=== PATIENT | female | born 1935 | race Caucasian/White ===

== ENCOUNTER 2017-07-23 06:44 | Emergency (ER) | payer OTHER ==
[~2017-07-23] VITALS: Ht 149.9 cm; Wt 40.8 kg
--- NOTE | ~2017-07-23 | EKG ---
[place] [address] [facility] [place] [address] ELECTROCARDIOGRAM REPORT Name: SHILPA VANG [id number] Admission: 07/23/17 Attend Phys: Discharge: 07/23/17 Date of : 31 Report #: [id number] THIS REPORT FOR: //name// [facility] ED Test Date: 2017-07-23 Test Time: 07:40:59 Pat Name: SHILPA VANG Department: Room: Gender: Television Specialist: JLAMBERT : 1935 Requested By: Jaylon Morgan Order Number: [id number] MD: Garrick Naidu Measurements Intervals [place] Rate: 72 P: 58 CA: 143 QRS: 23 QRSD: 92 T: 55 QT: 394 QTc: 432 Interpretive Statements Sinus rhythm No significant abnormality No previous ECG available for comparison Electronically Signed On 07-24-2017 14:11:57 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
[2017-07-23 07:15] LABS: HEMATOCRIT 41.7 % (37.0-47.0); HEMOGLOBIN 14.3 gm/dL (12.0-15.0); MCH 30.4 pg (26.0-34.0); MCHC 34.2 g/dL (28.0-37.0); MCV 88.8 fL (80.0-100.0); RBC 4.7 mil/uL (4.20-5.00); RDW 13.8 % (10.5-14.5); WBC 6.9 thou/uL (4.0-11.0)
[2017-07-23 07:18] LABS: URINE BILIRUBIN NEGATIVE (Negative); URINE BLOOD NEGATIVE (Negative); URINE CLARITY CLEAR; URINE COLOR YELLOW; URINE GLUCOSE-RANDOM* NEGATIVE (Negative); URINE KETONES NEGATIVE (Negative); URINE LEUKOCYTES-REFLEX NEGATIVE (Negative); URINE NITRITE-REFLEX NEGATIVE (Negative); URINE PROTEIN (DIPSTICK) NEGATIVE (Negative); URINE UROBILINOGEN 0.2 E.U./dl (0.2-1.0)
[2017-07-23 07:23] LABS: ANION GAP 5 mmol/L (7-16); BUN 13 mg/dL (7-18); CALCIUM 9.3 mg/dL (8.5-10.1); CHLORIDE 108 mmol/L (98-107); CO2 29 mmol/L (21-32); CREATININE 0.6 mg/dL (0.6-1.0); GLUCOSE 95 mg/dL (74-106); SODIUM 142 mmol/L (136-145)
[2017-07-23 07:32] LABS: TROPONIN-I < 0.04 ng/mL (<0.06)
[2017-07-23 10:14] VITALS: BP 152/76
== END 2017-07-23 10:10 | disposition home or self-care (01) ==
LOC: ER 06:44
PROVIDERS: Emergency Medicine
DX: R53.1 Weakness (principal)

== ENCOUNTER 2018-01-28 16:23 | Emergency (ER) | payer OTHER ==
[~2018-01-28] VITALS: Ht 149.9 cm; Wt 40.4 kg
[2018-01-28 18:14] VITALS: BP 165/71
== END 2018-01-28 18:16 | disposition home or self-care (01) ==
LOC: ER 16:23
DX: S20.222A Contusion of left back wall of thorax, initial encounter (principal); S00.83XA Contusion of other part of head, initial encounter; W18.39XA Other fall on same level, initial encounter; Y92.89 Other specified places as the place of occurrence of the external cause; Y93.89 Activity, other specified; Y99.8 Other external cause status

== ENCOUNTER 2018-04-24 03:14 | Emergency (ER) | payer OTHER ==
[~2018-04-24] VITALS: Ht 149.9 cm; Wt 40.4 kg
[2018-04-24 03:41] LABS: HEMATOCRIT 43.6 % (37.0-47.0); HEMOGLOBIN 14.7 gm/dL (12.0-15.0); MCH 29.9 pg (26.0-34.0); MCHC 33.7 g/dL (28.0-37.0); MCV 88.8 fL (80.0-100.0); RBC 4.91 mil/uL (4.20-5.00); RDW 13.7 % (10.5-14.5)
[2018-04-24 03:51] LABS: CALCIUM 9.8 mg/dL (8.5-10.1); CREATININE 0.7 mg/dL (0.6-1.0); POTASSIUM 4.2 mmol/L (3.5-5.1)
[2018-04-24 06:26] VITALS: BP 163/78
== END 2018-04-24 06:28 | disposition home or self-care (01) ==
LOC: ER 03:14
PROVIDERS: Emergency Medicine
DX: S01.81XA Laceration without foreign body of other part of head, initial encounter (principal); G20 Parkinson's disease; W18.09XA Striking against other object with subsequent fall, initial encounter; Y93.89 Activity, other specified; Y92.89 Other specified places as the place of occurrence of the external cause; Y99.8 Other external cause status

== ENCOUNTER 2018-05-16 12:05 | Inpatient (IN) | payer OTHER ==
[~2018-05-16] VITALS: Ht 149.9 cm; Wt 39.9 kg
--- NOTE | ~2018-05-16 | EKG ---
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
[2018-05-16 12:23] LABS: ABSOLUTE NEUTROPHILS 5.8 thou/uL (1.4-8.2); BASOPHILS 0.7 % (0.0-2.0); EOSINOPHILS 2.1 % (0.0-3.0); HEMATOCRIT 41.1 % (37.0-47.0); HEMOGLOBIN 13.8 gm/dL (12.0-15.0); LYMPHOCYTES 21.6 % (24.0-44.0); MCH 29.9 pg (26.0-34.0); MCHC 33.6 g/dL (28.0-37.0); MCV 88.8 fL (80.0-100.0); PLATELET COUNT 178 thou/uL (150-400); POLYS 67.6 % (36.0-66.0); RBC 4.62 mil/uL (4.20-5.00); RDW 13.9 % (10.5-14.5); WBC 8.6 thou/uL (4.0-11.0)
[2018-05-16 12:32] LABS: ANION GAP 5 mmol/L (7-16); BUN 12 mg/dL (7-18); CALCIUM 9.5 mg/dL (8.5-10.1); CHLORIDE 106 mmol/L (98-107); CO2 32 mmol/L (21-32); CREATININE 0.7 mg/dL (0.6-1.0); GLUCOSE 85 mg/dL (74-106); POTASSIUM 4.4 mmol/L (3.5-5.1); SODIUM 143 mmol/L (136-145)
[2018-05-16 12:41] LABS: ALBUMIN 3.2 g/dL (3.4-5.0); SGOT 14 U/L (15-37); SGPT 14 U/L (30-65); TOTAL BILIRUBIN 0.7 mg/dL (<0.1-1.0); TOTAL PROTEIN 6.7 g/dL (6.4-8.2); TROPONIN-I <0.06 ng/mL (<0.06)
[2018-05-16 13:58] LABS: URINE BILIRUBIN NEGATIVE (Negative); URINE BLOOD NEGATIVE (Negative); URINE CLARITY CLEAR; URINE COLOR YELLOW; URINE GLUCOSE-RANDOM* NEGATIVE (Negative); URINE KETONES NEGATIVE (Negative); URINE LEUKOCYTES-REFLEX TRACE (Negative); URINE NITRITE-REFLEX NEGATIVE (Negative); URINE PROTEIN (DIPSTICK) NEGATIVE (Negative); URINE SPECIFIC GRAVITY 1.015 (1.005-1.035)
[2018-05-16 16:30] VITALS: BP 133/68
[2018-05-16 18:15] VITALS: BP 154/73
[2018-05-16 19:58] VITALS: BP 145/79
[2018-05-17 04:13] VITALS: BP 124/62
[2018-05-17 04:55] LABS: HEMATOCRIT 38.7 % (37.0-47.0); MCH 29.7 pg (26.0-34.0); MCHC 33.5 g/dL (28.0-37.0); MCV 88.6 fL (80.0-100.0); RBC 4.37 mil/uL (4.20-5.00); RDW 13.7 % (10.5-14.5); WBC 7.7 thou/uL (4.0-11.0)
[2018-05-17 05:00] LABS: CALCIUM 8.9 mg/dL (8.5-10.1); CREATININE 0.6 mg/dL (0.6-1.0); POTASSIUM 3.8 mmol/L (3.5-5.1)
[2018-05-17 07:25] VITALS: BP 158/73
[2018-05-17 16:53] VITALS: BP 175/90
[2018-05-17 20:15] VITALS: BP 134/71
[2018-05-18 04:09] VITALS: BP 143/63
[2018-05-18] MEDS ORDERED: TAMIFLU30 MG PO (09:37)
[2018-05-18] MEDS ORDERED: CIPROFLOXIN HC2.5 M1 OPHTHALMIC (09:37)
[2018-05-18 11:54] VITALS: BP 143/63
[2018-05-18 13:26] VITALS: BP 143/63
[2018-05-18 13:30] VITALS: BP 143/63
== END 2018-05-18 13:59 | disposition home health service (06) | DRG 193 ==
LOC: ER 12:05 → 4E 14:53 → EROBS 14:53 → 4E 16:50
PROVIDERS: Hospitalist; Physician Assistant
DX: J10.00 Influenza due to other identified influenza virus with unspecified type of pneumonia (principal); E43 Unspecified severe protein-calorie malnutrition; Z68.1 Body mass index [BMI] 19.9 or less, adult; J30.2 Other seasonal allergic rhinitis; H10.9 Unspecified conjunctivitis; Z79.899 Other long term (current) drug therapy
CPT/HCPCS: 10183; 10783

== ENCOUNTER 2020-03-16 12:33 | Emergency (ER) | payer OTHER ==
[~2020-03-16] VITALS: Ht 152.4 cm; Wt 38.1 kg
--- NOTE | ~2020-03-16 | EMS ---
[address] [address] EMS Patient Care Report Name: SHILPA VANG Room #: [facility] Rivero#: [id number] Admission: 03/16/20 Attend Phys: Discharge: Date of : 31 Report #: [id number] THIS REPORT FOR: //name// Report Transmitted: 03/16/2020 13:04 EMS Care Summary [place], [place]/[facility] Incident [id number] @ 03/16/2020 12:05 Incident Location [address] [facility] [address] Patient SHILPA VANG Female, 84 Years 1935 Patient Address [address] [place] [address] [address] [phone] Patient History Parkinson's Disease,Depression, Patient Allergies No known allergies, Chief Complaint HEAD LAC/ CONTUSION Disposition Transported No Lights/[place] Dispatch Reason Falls Transported To [facility] Narrative UPON ARRIVAL PT BEING BROUGHT OUT TO AMBULANCE IN WHEELCHAIR. PT HAD TRIPPED INSIDE HITTING HER FOREHEAD ON GROUND. NURSE DENIES ANY LOC. NURSE STATES PT IS ACTING NORMAL. C-SPIBE CLEARED. PT LIFTED TO COT. PT HAS A LAC AND CONTUSION TO L EYEBROW AREA. BLEEDING HAS STOPPED. PT NOT ON BLOOD THINNERS. PT ALSO HAS SKIN TEAR TO L ELBOW. PT TRANSPORTED TO [facility]. [address] [address] EMS Patient Care Report Name: SHILPA VANG Room #: [facility] Rivero#: [id number] Admission: 03/16/20 Attend Phys: Discharge: Date of : 31 Report #: [id number] Initial Vitals @12:20P: 73,R: 20,BP: 132/73,Pain: 2/10,GCS: 15,SpO2: 97,Revised Trauma: 12, @12:27P: 71,R: 20,BP: 130/72,GCS: 15,CO: 0,SpO2: 95,Revised Trauma: 12, Assessments @12:17MENTAL:Person Oriented,Time Oriented,Event Oriented,Place Oriented,SKIN:HEENT:Head/Face: No Abnormalities,LUNG SOUNDS:General: No Abnormalities,ABDOMEN:General: No Abnormalities,PELVIS//GI:EXTREMITIES:Left Arm: No Abnormalities,Right Arm: No Abnormalities,Left Leg: No Abnormalities,Right Leg: No Abnormalities,PULSE:Radial: 2+ Normal,NEURO:No Abnormalities, Impression Injury of Head Procedures @12:17ALS AssessmentResponse: UnchangedSucceeded@12:18C-Spine ClearanceResponse: Unchanged Timeline 12:03,Call Received 12:03,Dispatch Notified 12:05,Dispatched 12:06,En Route 12:15,On Scene 12:16,At Patient 12:17,ALS Assessment,Response: UnchangedSucceeded, 12:18,C-Spine Clearance,Response: Unchanged 12:20,BP: 132/73 M,PULSE: 73,RR: 20 R,SPO2: 97 Ox,ETCO2: ,BG: ,PAIN: 2,GCS: 15, 12:21,Depart Scene 12:27,BP: 130/72 M,PULSE: 71,RR: 20 R,SPO2: 95 Ox,ETCO2: ,BG: ,PAIN: ,GCS: 15, 12:29,At Destination 12:48,Call Closed Disclaimer v1.1 Copyright 2020 [employer] This EMS Care Summary contains data elements from the applicable legal record (which may be displayed differently). It is designed to provide pertinent information for the following purposes: continuity of care, clinical quality, and state data reporting. The complete legal record is available to ED staff and administrators of the receiving hospital in [employer]'s Patient Tracker. All data is provided "as is."
[~2020-03-16 12:33] MED LIST: CIPROFLOXIN HC2.5 M1 OPHTHALMIC; TAMIFLU30 MG PO
[2020-03-16 18:24] VITALS: BP 134/66
--- NOTE | 2020-03-17 09:27 | EKG ---
[facility] [place] [address] ELECTROCARDIOGRAM REPORT Name: SHILPA VANG Room #: [facility]#: [id number] Admission: 03/16/20 Attend Phys: Discharge: 03/16/20 Date of : 31 Report #: [id number] THIS REPORT FOR: cc: Milan Tan MD, Muhammed K. 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: [facility] : 1935 Requested By: Andrew Singh Order Number: [id number] MD: Garrick Naidu Measurements Intervals [place] Rate: 80 P: 0 PA: 124 QRS: 30 QRSD: 94 T: 72 QT: 374 QTc: 432 Interpretive Statements Sinus rhythm No significant abnormality Compared to ECG 05/16/2018 12:39:54 No significant change was found Electronically Signed On 03-17-2020 9:27:25 CDT by Garrick Naidu [email or web address] <ELECTRONICALLY SIGNED> By: Garrick Naidu MD, [facility] 03/17/20 0927 1814 1814 Garrick Naidu MD, [facility] /EPI
== END 2020-03-16 18:26 | disposition home or self-care (01) ==
LOC: ER 12:33
DX: S01.112A Laceration without foreign body of left eyelid and periocular area, initial encounter (principal); S50.02XA Contusion of left elbow, initial encounter; Z91.09 Other allergy status, other than to drugs and biological substances; W01.0XXA Fall on same level from slipping, tripping and stumbling without subsequent striking against object, initial encounter; Y93.89 Activity, other specified; Y92.89 Other specified places as the place of occurrence of the external cause; Y99.8 Other external cause status